=== PATIENT | female | born 1965 | race Caucasian/White ===

== ENCOUNTER 2016-06-09 10:22 | Emergency (ER) | payer OTHER ==
[~2016-06-09] VITALS: Ht 175.3 cm; Wt 107.0 kg
[~2016-06-09 10:22] MED LIST: BACT800T5 PO; CEPH500C3 PO; IBUP800T23 PO; METF-324 PO; METF500 PO; TYLE3 PO
[2016-06-09 10:28] VITALS: BP 133/60; PULSE 52; RESP 14; TEMP 98; O2SAT 98
--- NOTE | 2016-06-09 11:02 | PD ---
HPI . Alcohol and drug abuse Chief Complaint: Alcohol/Drug Intoxication Time Seen by Provider: 10:45 Travel History International Travel<30 days: No Contact w/Intl Traveler<30days: No Traveled to known affect area: No History of Present Illness HPI Patient presents to us by law enforcement with a chief complaint of being detoxed. She states that she abuses alcohol and cocaine. She denies any other symptoms. Her is also here as a patient for the same thing. Apparently they were both brought in by law enforcement. PFSH Past Medical History Hx Anticoagulant Therapy: No Cardiovascular Problems: No Chemotherapy: No Cerebrovascular Accident: No Diabetes: Yes Patient Takes Glucophage: No Diminished Hearing: No Respiratory: No Thyroid Disease: Yes Tetanus Vaccination: > 5 Years Influenza Vaccination: No ?: Not Menopausal: Yes : 2 Para: 2 Past Surgical History Abdominal Surgery: Yes (UMBILICAL HERNIA) Section: Yes (X2) Hysterectomy: No Other Surgery: Yes (LEEP) Social History Alcohol Use: No Tobacco Use: No Substance Use: No Allergies-Medications (Allergen,Severity, Reaction): Coded Allergies: *MDRO Multi-Drug Resistant Organism (Verified Adverse Reaction, Unknown, ) MRSA (foot-01/25/16) Reported Meds & Prescriptions Reported Meds & Active Scripts Active No Active Prescriptions or Reported Medications Review of Systems Except as stated in HPI: all other systems reviewed are Neg Psychiatric: Positive: Substance Abuse Physical Exam Narrative GENERAL: Disheveled but otherwise healthy-appearing woman in no acute distress. SKIN: Warm and dry. HEAD: Atraumatic. Normocephalic. EYES: Pupils equal and round. Extraocular movements are intact. ENT: No nasal bleeding or discharge. Mucous membranes pink and moist. NECK: Trachea midline. Neck is supple. CARDIOVASCULAR: Regular rate and rhythm. Heart sounds are normal. RESPIRATORY: No accessory muscle use. Lungs are clear with full air movement throughout. GASTROINTESTINAL: Abdomen soft, non-tender, nondistended. MUSCULOSKELETAL: No obvious deformities. No edema. NEUROLOGICAL: Awake and alert. No obvious cranial nerve deficits. Motor grossly within normal limits. Normal speech. PSYCHIATRIC: Appropriate mood and affect; insight and judgment normal. Data Data Last Documented VS Vital Signs Date Time Temp Pulse Resp B/P Pulse Ox O2 Delivery O2 Flow Rate FiO2 06/09/16 10:35 16 98 Room Air 06/09/16 10:28 98.0 52 133/60 Orders Complete Blood Count With Diff (06/09/16 11:17) Comprehensive Metabolic Panel (06/09/16 11:17) Drug Screen, Random Urine (06/09/16 11:17) Alcohol (Ethanol) (06/09/16 11:17) Labs Laboratory Tests Test 06/09/16 06/09/16 11:30 12:05 White Blood Count 9.9 TH/MM3 Red Blood Count 4.33 MIL/MM3 Hemoglobin 11.9 GM/DL Hematocrit 35.3 % Mean Corpuscular Volume 81.6 FL Mean Corpuscular Hemoglobin 27.5 PG Mean Corpuscular Hemoglobin 33.8 % Concent Red Cell Distribution Width 15.5 % Platelet Count 272 TH/MM3 Mean Platelet Volume 8.4 FL Neutrophils (%) (Auto) 72.3 % Lymphocytes (%) (Auto) 18.6 % Monocytes (%) (Auto) 6.2 % Eosinophils (%) (Auto) 1.7 % Basophils (%) (Auto) 1.2 % Neutrophils # (Auto) 7.2 TH/MM3 Lymphocytes # (Auto) 1.8 TH/MM3 Monocytes # (Auto) 0.6 TH/MM3 Eosinophils # (Auto) 0.2 TH/MM3 Basophils # (Auto) 0.1 TH/MM3 CBC Comment DIFF FINAL Differential Comment Sodium Level 142 MEQ/L Potassium Level 3.5 MEQ/L Chloride Level 106 MEQ/L Carbon Dioxide Level 28.2 MEQ/L Anion Gap 8 MEQ/L Blood Urea Nitrogen 14 MG/DL Creatinine 0.89 MG/DL Estimat Glomerular Filtration 66 ML/MIN Rate Random Glucose 110 MG/DL Calcium Level 8.3 MG/DL Total Bilirubin 0.5 MG/DL Aspartate Amino Transf 10 U/L (AST/SGOT) Alanine Aminotransferase 15 U/L (ALT/SGPT) Alkaline Phosphatase 58 U/L Total Protein 5.7 GM/DL Albumin 3.0 GM/DL Ethyl Alcohol Level LESS THAN 3 MG/DL Urine Opiates Screen NEG Urine Barbiturates Screen NEG Urine Amphetamines Screen NEG Urine Benzodiazepines Screen NEG Urine Cocaine Screen POS Urine Cannabinoids Screen NEG MDM Medical Decision Making Medical Screen Exam Complete: Yes Emergency Medical Condition: Yes Differential Diagnosis Differential diagnosis includes but is not limited to polysubstance abuse, suicidal ideation, manipulative behavior Narrative Course Patient presents requesting detox. She denies any other complaints. CBC & BMP Diagram 06/09/16 11:30 Drug screen is positive for cocaine. Alcohol level is negative. Diagnosis Primary Impression: Polysubstance abuse Additional Instructions: Follow up at [facility] if you desire detox. Scripts No Active Prescriptions or Reported Meds Disposition: 01 DISCHARGE HOME Condition: Billie Moe MD Jun 09, 2016 11:02
[2016-06-09 11:53] LABS: AUTOMATED NEUTROPHIL # 7.2 TH/MM3 (1.8-7.7); BASOPHIL # 0.1 TH/MM3 (0-0.2); BASOPHIL % 1.2 % (0.0-2.0); EOSINOPHIL # 0.2 TH/MM3 (0-0.4); EOSINOPHIL % 1.7 % (0.0-4.0); HEMATOCRIT 35.3 % (35.0-46.0); HEMO FLAGS DIFF FINAL; LYMPH % 18.6 % (9.0-44.0); LYMPHOCYTE # 1.8 TH/MM3 (1.0-4.8); MEAN CELL VOLUME 81.6 FL (80.0-100.0); MEAN CORPUSCULAR HEMOGLOBIN 27.5 PG (27.0-34.0); MEAN CORPUSCULAR HGB CONC 33.8 % (32.0-36.0); MONO % 6.2 % (0.0-8.0); NEUT % 72.3 % (16.0-70.0); PLATELET COUNT 272 TH/MM3 (150-450); RED BLOOD COUNT 4.33 MIL/MM3 (4.00-5.30); RED CELL DISTRIBUTION WIDTH 15.5 % (11.6-17.2); WHITE BLOOD COUNT 9.9 TH/MM3 (4.0-11.0)
[2016-06-09 12:06] LABS: ANION GAP 8 MEQ/L (5-15)
[2016-06-09 12:09] LABS: ALKALINE PHOSPHATASE 58 U/L (45-117); ALT (GPT) 15 U/L (10-53); AST (GOT) 10 U/L (15-37); BICARBONATE 28.2 MEQ/L (21.0-32.0); BLOOD UREA NITROGEN 14 MG/DL (7-18); CHLORIDE 106 MEQ/L (98-107); GLOMERULAR FILTRATION RATE 66 ML/MIN (>89); POTASSIUM 3.5 MEQ/L (3.5-5.1); SODIUM (NA) 142 MEQ/L (136-145); TOTAL BILIRUBIN ADULT 0.5 MG/DL (0.2-1.0)
[2016-06-09 12:36] LABS: AMPHETAMINE, URINE NEG (NEG); BARBITURATES, URINE NEG (NEG); COCAINE, URINE POS (NEG)
== END 2016-06-09 13:00 | disposition home or self-care (01) ==
LOC: NEPA 10:22
DX: F19.10 Other psychoactive substance abuse, uncomplicated (principal); F14.10 Cocaine abuse, uncomplicated; F10.10 Alcohol abuse, uncomplicated; E11.9 Type 2 diabetes mellitus without complications; Y90.0 Blood alcohol level of less than 20 mg/100 ml
CPT/HCPCS: 80053; 80307; 80320; 85025; 99284

== ENCOUNTER 2016-06-09 13:36 | Emergency (ER) | payer OTHER ==
[~2016-06-09] VITALS: Ht 175.3 cm; Wt 107.0 kg
[2016-06-09 13:38] VITALS: BP 121/54; PULSE 56; RESP 15; TEMP 98.1; O2SAT 99
--- NOTE | 2016-06-09 16:57 | PD ---
HPI Chief Complaint: Suicide Ideation/Attempt Time Seen by Provider: 16:53 Travel History International Travel<30 days: No Contact w/Intl Traveler<30days: No Traveled to known affect area: No History of Present Illness HPI 51-year-old female presents to the emergency department for the second time today. She states that she once a ride to detox[facility]. Patient denies any suicidal or homicidal ideation to me. She denies any medical complaints. The patient got upset when I instructed her that we do not necessarily provide a ride to [facility] for voluntary detox. The patient got up and left at that time. PFSH Past Medical History Hx Anticoagulant Therapy: No Cardiovascular Problems: No Chemotherapy: No Cerebrovascular Accident: No Diabetes: Yes Diminished Hearing: No Respiratory: No Thyroid Disease: Yes ?: Not Menopausal: Yes : 2 Para: 2 Past Surgical History Abdominal Surgery: Yes (UMBILICAL HERNIA) Section: Yes (X2) Hysterectomy: No Other Surgery: Yes (LEEP) Social History Alcohol Use: No Tobacco Use: No Substance Use: No Allergies-Medications (Allergen,Severity, Reaction): Coded Allergies: *MDRO Multi-Drug Resistant Organism (Verified Adverse Reaction, Unknown, ) MRSA (foot-01/25/16) Reported Meds & Prescriptions Reported Meds & Active Scripts Active No Active Prescriptions or Reported Medications Review of Systems Except as stated in HPI: all other systems reviewed are Neg Physical Exam Exam Limitations: Left AMA Narrative GENERAL: Unkempt obese female patient, ambulatory with a steady gait. Afebrile. SKIN: Warm and dry. HEAD: Normocephalic. Atraumatic. EYES: No scleral icterus. No injection or drainage. RESPIRATORY: No accessory muscle use. GASTROINTESTINAL: Abdomen soft, non-tender, nondistended. MUSCULOSKELETAL: No cyanosis, or edema. Data Data Last Documented VS Vital Signs Date Time Temp Pulse Resp B/P Pulse Ox O2 Delivery O2 Flow Rate FiO2 06/09/16 13:38 98.1 56 15 121/54 99 MDM Medical Decision Making Medical Screen Exam Complete: Yes Emergency Medical Condition: Yes Medical Record Reviewed: Yes Differential Diagnosis Polysubstance abuse versus medical clearance versus malingering Narrative Course 51-year-old female was previously seen in the emergency department this morning requesting detox. She is referred history of Kar, but checked back in. She apparently told the triage nurse that she was feeling suicidal, but denies this to me. When she found out that we do not always provide a ride to [facility] for voluntary detox, she got her stuff and left. Patient is not tachycardic and has no evidence of detoxing at this time. AMA: The risks of leaving against medical advice without further evaluation treatment were discussed with the patient. These risks include cardiac dysfunction, cardiac dysrhythmia, possible heart attack, possible stroke or . The patient indicated understanding of these risks and appeared to have the capacity to make this decision. Diagnosis Primary Impression: Left against medical advice Scripts No Active Prescriptions or Reported Meds Disposition: 07 AGAINST MEDICAL ADVICE Cassidy Parker Jun 09, 2016 16:57
== END 2016-06-09 17:07 | disposition left against medical advice (07) ==
LOC: NEPA 13:36
DX: Z00.8 Encounter for other general examination (principal)
CPT/HCPCS: 99282

== ENCOUNTER 2016-06-09 18:04 | Emergency (ER) | payer OTHER ==
[~2016-06-09] VITALS: Ht 175.3 cm; Wt 107.0 kg
[2016-06-09 18:05] VITALS: BP 127/74; PULSE 74; RESP 15; TEMP 98; O2SAT 99
--- NOTE | 2016-06-09 18:40 | PD ---
HPI . Suicidal ideation Chief Complaint: Suicide Ideation/Attempt Time Seen by Provider: 18:31 Travel History International Travel<30 days: No Contact w/Intl Traveler<30days: No Traveled to known affect area: No History of Present Illness HPI This is this patient's third visit to the emergency department in less than 8 hours. She is actually never left the department. First time that she was here , she stated that she wanted to be admitted for detoxification. We explained to her that we did not do detoxification here and that she would need to go to [facility]. The patient's was here being seen for the same thing. They were both discharged instructions to follow up at [facility]. They both immediately checked back in and told the triage nurse that they were suicidal. This patient denied suicidal ideation to the JENNIFER saw her the second time. She was subsequently discharged. She now takes back and a third time stating that she is suicidal. She denies any previous history of suicidal ideation. I asked her if she had any plans as to how she might commit suicide she states that she might slash her wrist. Patient does have a pocket knife. PFSH Past Medical History Hx Anticoagulant Therapy: No Cardiovascular Problems: No Chemotherapy: No Cerebrovascular Accident: No Diabetes: Yes Diminished Hearing: No Respiratory: No Thyroid Disease: Yes Menopausal: Yes : 2 Para: 2 Past Surgical History Abdominal Surgery: Yes (UMBILICAL HERNIA) Section: Yes (X2) Hysterectomy: No Other Surgery: Yes (LEEP) Social History Alcohol Use: No Tobacco Use: No Substance Use: No Allergies-Medications (Allergen,Severity, Reaction): Coded Allergies: *MDRO Multi-Drug Resistant Organism (Verified Adverse Reaction, Unknown, ) MRSA (foot-01/25/16) Reported Meds & Prescriptions Reported Meds & Active Scripts Active No Active Prescriptions or Reported Medications Review of Systems Except as stated in HPI: all other systems reviewed are Neg Psychiatric: Positive: Suicidal Ideations, Substance Abuse Physical Exam Narrative GENERAL: Awake and alert and in no acute distress. Disheveled. SKIN: Warm and dry. CARDIOVASCULAR: Regular rate and rhythm. RESPIRATORY: No accessory muscle use. MUSCULOSKELETAL: No obvious deformities. No edema. NEUROLOGICAL: Awake and alert. No obvious cranial nerve deficits. Motor grossly within normal limits. Normal speech. PSYCHIATRIC: Admitted substance abuse. She endorses suicidal ideation. Data Data Last Documented VS Vital Signs Date Time Temp Pulse Resp B/P Pulse Ox O2 Delivery O2 Flow Rate FiO2 06/09/16 18:05 98.0 74 15 127/74 99 Orders Psych Screen (06/09/16 18:34) MDM Medical Decision Making Medical Screen Exam Complete: Yes Emergency Medical Condition: Yes Differential Diagnosis Differential diagnosis includes but is not limited to depression with suicidal gesture, suicide attempt, suicidal ideation, attention seeking behavior. Narrative Course Patient is here for the third time today for drug and alcohol abuse. She is now stating that she is suicidal. Her is here with the same complaint. Apparently, they have both recently become homeless. The patient has already been seen twice today. Therefore, she is medically cleared to be seen by psychiatry. Diagnosis Primary Impression: Suicidal ideation Scripts No Active Prescriptions or Reported Meds Condition: Billie Moe MD Jun 09, 2016 18:40
[2016-06-10] VITALS: BP 124/76; PULSE 70; RESP 18; O2SAT 98
[2016-06-10 06:26] VITALS: BP 118/70; PULSE 68; RESP 18; O2SAT 97
--- NOTE | 2016-06-10 12:38 | PD.CONS ---
Provisional Diagnosis Admission Date Pe Ell I. Cocaine abuse F 14.10, malingering Z 76.5 History of Present Illness Service Psychiatry Consult Requested By ADM the Reason for Consult Assessment Primary Care Physician No Primary Care Physician [facility] Patient is a 51-year-old well tattooed white female who initially came here on with a asking for detox or rehabilitation. Initial visit was visited [phone] daytime urine toxicology positive for cocaine she was assessed by the ED physician referred history of sola for follow-up and discharged home. Patient returned very soon after the discharge was 3 registered under visit [phone] asking for right to detox when she was told that there is no right available that she would need to make her own way she left AMA. Soon after that she returned with her now claiming suicidal ideation leading to this assessment. At the present time patient sitting quietly in her room nurse Laura present throughout the session as mentioned above patient is well-padded 2. When asked how she met her she states she met him through the cousin over from the first was also and she'll with her , has been in residential for 18 years, she does acknowledge being a risk taker she is attracted to "bad voices" patient made some vague statements about mental health issues though she denies any prior psychiatric contact hospitalization. She is vague about other drug use appears cocaine drug of choice acknowledges rare use of marijuana she also has tried Flocca recently, it appears this is her third marriage they've been for about 8-10 months. Patient has 2 adult children and 2 grandchildren that live local appear she is somewhat estranged from them. In any event at the present time patient does not meet criteria for acute psychiatric hospitalization I feel this manipulation and malingering involved with this she has been homeless at this time. However this is history of multiple drug abuse I will do a PTC. The been no Rx by me. We'll refer the patient to detox/rehabilitation facility Review of Systems Other None significant at this time Past Family Social History Coded Allergies: *MDRO Multi-Drug Resistant Organism (Verified Adverse Reaction, Unknown, ) MRSA (foot-01/25/16) Past Medical History Medically cleared ED Discontinued Reported Medications Metformin 500 mg (Glucophage 500 mg)500 Mg [id number] Mg PO BIDPC 01/25/16 Metformin ER 24 HR 1,000 Mg Tab1,000 Mg PO BIDPC 11/19/15 Discontinued Scripts Acetaminophen/Codeine (Tylenol #3)Acetaminophen 300/30 Codeine Tab1 Tab PO Q6H PRN (PAIN SCALE 6 TO 10) #15 TAB FOR PAIN Prov:Vivi Burrell MD 01/25/16 Cephalexin (Keflex)500 Mg [id number] Mg PO QID #40 CAP Prov:Vivi Burrell MD 01/25/16 Sulfamethoxazole-Trimethoprim DS (Bactrim DS)1 Tab Tab1 Tab PO BID 10 Days Prov:Vivi Burrell MD 01/25/16 Ibuprofen 800 Mg [id number] Mg PO Q6H PRN (PAIN SCALE 1 TO 10) #30 TAB Prov:Lizbeth Anderson TILE LAYER SUPERVISOR 11/19/15 Cephalexin (Keflex)500 Mg [id number] Mg PO QID 10 Days Prov:WenbhumiLizbeth 11/19/15 Family History Unknown at this time Social History Patient to polysubstance abuser with 18 year plus incarceration history both being cocaine abuser Patient's Strengths (min. 2) Patient verbal able [facility] Physical Exam Patient seen screen in ED exam reviewed and agreed with Vital Signs Vital Signs Date Time Temp Pulse Resp B/P Pulse Ox O2 Delivery O2 Flow Rate FiO2 06/10/16 06:26 68 18 118/70 97 Room Air 06/09/16 18:05 98.0 I/O 06/09/16 06/09/16 06/10/16 08:00 16:00 00:00 Intake Total 120 ml Balance 120 ml Mental Status Examination Alert oriented call full figured disheveled multiply tattooed white female overall calm cooperative is somewhat guarded and manipulative with fair eye contact. Nurse Laura present throughout session Appearance Multitude in disheveled Speech: Unremarkable Orientation: x3 Memory: Unremarkable Thought Process: Logical Thought Content: Unremarkable Hallucination Type: None Attention and Concentration: Other (fair) Suicidal Ideation: Yes (made vague statements about it with her third visit to the ED within 24 hours I feel this is a manipulative and malingering statement) Previous Suicide Attempts: No Homicidal Ideation: No Previous Homicide Attempts: No Insight: Poor Judgement: Poor Affect: Other (decreased range and intensity) Mood: Euthymic (to somewhat restricted) Motor Activity: Normal gait Assessment & Plan Problem List: (1) Malingering ICD Code: Z76.5 (2) Cocaine abuse ICD Code: F14.10 Assessment & Plan Estimated LOS: days patient does not meet criteria for inpatient psychiatric hospitalization. No visible marked degree of manipulation and malingering. I will do a PCR referred to a detox/rehabilitation facility, no Rx by me Discharge Planning See above Request HC Surrog/Guard Advoc?: No Guillermo Samuel MD Jun 10, 2016 12:38
[2016-06-10 17:00] VITALS: BP 129/79; PULSE 74; RESP 16; TEMP 98.4; O2SAT 100
== END 2016-06-10 19:42 | disposition home or self-care (01) ==
LOC: NEPA 18:04
DX: F19.99 Other psychoactive substance use, unspecified with unspecified psychoactive substance-induced disorder (principal); R45.851 Suicidal ideations
CPT/HCPCS: 99283

== ENCOUNTER 2017-08-26 12:12 | Emergency (ER) | payer OTHER ==
[~2017-08-26] VITALS: Ht 175.3 cm; Wt 100.0 kg
[2017-08-26 12:17] VITALS: BP 136/87; PULSE 73; RESP 20; TEMP 98.3; O2SAT 97
[2017-08-26] MEDS ORDERED: IBUPROFEN 800 MG TAB PO ONE (14:45)
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
[2017-08-26] MEDS ORDERED: IBUP-232 PO (16:17)
== END 2017-08-26 16:35 | disposition home or self-care (01) ==
LOC: NEPD 12:12
DX: S46.912A Strain of unspecified muscle, fascia and tendon at shoulder and upper arm level, left arm, initial encounter (principal); F17.200 Nicotine dependence, unspecified, uncomplicated; V47.6XXA Car passenger injured in collision with fixed or stationary object in traffic accident, initial encounter
CPT/HCPCS: 73030; 99283